=== PATIENT | female | born 1990 | race Caucasian/White ===

== ENCOUNTER 2017-04-08 21:38 | Emergency (ER) | payer MEDICAID ==
[~2017-04-08] VITALS: Ht 175.3 cm; Wt 64.0 kg
[2017-04-08] MEDS ORDERED: SODIUM CHLORIDE 0.9% 1,000 ML IV ONE (21:49)
[2017-04-08] MEDS ORDERED: ONDANSETRON HCL 4MG/2ML VIAL IV STA (21:49)
[2017-04-08 22:39] LABS: BASOPHILS % 0.5 % (0.0-2.0); EOSINOPHILS % 0.7 % (0.0-5.0); HEMATOCRIT. 28.9 % (36.0-48.0); HEMOGLOBIN. 9.9 g/dL (12.0-16.0); LYMPHOCYTES % 29.4 % (20.0-50.0); MEAN CORPUSCULAR HEMOGLOBIN 32.7 pg (28.0-32.0); MEAN PLATELET VOLUME 6.6 fl (7.4-10.4); MONOCYTES % 7.7 % (2.0-8.0); NEUTROPHILS % 61.7 % (40.0-76.0); PLATELET 203 x1000/uL (130-400); RED BLOOD CELL COUNT 3.04 mill/uL (4.2-5.4); RED CELL DISTRIBUTION WIDTH 12.6 % (11.6-14.6)
[2017-04-08 22:44] LABS: CHLORIDE 114 mEq/L (98-107); HCG SCREEN NEGATIVE
[2017-04-08 22:52] LABS: CARBON DIOXIDE 20 mEq/L (21-32)
[2017-04-08 22:53] LABS: TROPONIN I < 0.02 ng/mL (0.00-0.04)
[2017-04-08 22:54] LABS: ETHANOL BLOOD 322 mg/dL
[2017-04-09] MEDS ORDERED: KCL 20MEQ/100ML PREMIX 100 ML IV ONE (00:30)
[2017-04-09] MEDS ORDERED: POTASSIUM CHLORIDE 20MEQ TABLET SR PO ONE (01:00)
[2017-04-09 01:38] VITALS: BP 104/58
== END 2017-04-09 05:40 | disposition left against medical advice (07) ==
LOC: ER 22:05
DX: T51.0X1A Toxic effect of ethanol, accidental (unintentional), initial encounter (principal); G92 Toxic encephalopathy; F10.129 Alcohol abuse with intoxication, unspecified; Y90.8 Blood alcohol level of 240 mg/100 ml or more; Y92.29 Other specified public building as the place of occurrence of the external cause; D64.9 Anemia, unspecified
CPT/HCPCS: 36415; 80053; 84484; 84703; 85025; 93005; 96361; 96374; 99285; G0482; J2405; J3480; Z7610; J7030